=== PATIENT | female | born 1985 | race Caucasian/White ===

== ENCOUNTER 2023-05-17 06:58 | Outpatient (CLI) | payer BC, SELFPAY ==
[2023-05-17 07:37] LABS: Glucose Fasting Gestational 87 mg/dL (>/=95)
[2023-05-17 09:01] LABS: Glucose 1 Hour Gest 163 mg/dL (>/=180)
[2023-05-17 11:26] LABS: Glucose 3 Hour Gest 84 mg/dL (>/=140)
[2023-05-17 11:28] LABS: Glucose 2 Hour Gest 142 mg/dL (>/= 155)
== END 2023-05-17 06:59 | disposition home or self-care (01) ==
PROVIDERS: PCP Nurse Practitioner Family; Visit Provider Obstetrics & Gynecology
DX: R73.09 Other abnormal glucose (principal)
CPT/HCPCS: 36415; 82951; 82952

== ENCOUNTER 2023-06-21 11:08 | Emergency (ER) | payer BC, SELFPAY ==
--- NOTE | 2023-06-21 11:19 | ED.GENADULT ---
HPI - General Adult General Chief complaint: Upper Respiratory Infection Stated complaint: COLD SYMPTOMS/35 WEEKS Time Seen by Provider: 06/21/23 11:22 Source: patient, RN notes reviewed and old records reviewed Mode of arrival: ambulatory Limitations: no limitations History of Present Illness HPI narrative: 37-year-old female presents to the [facility] with cold-like symptoms since Saturday. Patient reports head congestion and cough. Denies fevers. Recently on a Z-Billy that was prescribed by Ob. States that for the last couple days has been taking DayQuil and NyQuil. Patient 35 weeks Onset (ago): day(s) (5) Treatments prior to arrival: other (dayquil) Related Data Home Medications Medication Instructions Recorded Confirmed aspirin 81 mg tablet,delayed 81 mg PO DAILY 06/21/23 06/21/23 release multivit with minerals-iron 18 1 tablet PO DAILY 06/21/23 06/21/23 mg-folic ac 400 mcg-vit K 25 mcg tablet (One Daily Women's) Allergies Allergy/AdvReac Type Severity Reaction Status Date / Time amoxicillin Allergy Severe rash Verified 06/21/23 11:23 Review of Systems Review of Systems: All systems reviewed & are unremarkable except as noted in HPI and below Constitutional: Constitutional: Reports no additional constitutional complaints Eyes: Eyes: Reports no additional eye complaints ENT: Reports as per HPI and Reports nasal congestion Cardiovascular: Cardiovascular: Reports no additional cardiovascular complaints, Denies chest pain and Denies dyspnea Respiratory: Respiratory: Reports as per HPI, Reports chest congestion, Reports cough and Denies dyspnea Gastrointestinal: Gastrointestinal: Reports no additional gastrointestinal complaints, Denies abdominal pain, Denies nausea and Denies vomiting Musculoskeletal: Musculoskeletal: Reports no additional musculoskeletal complaints Integumentary/Breasts: Skin/Breast: Reports system reviewed and no additional complaints, except as docu Neurologic: Reports system reviewed and no additional complaints, except as documented Psychiatric: Psychiatric: Reports no additional psychiatric complaints Allergic/Immunologic: Allergic/Immunologic: Reports no additional allergic/immunologic complaints PMFSH Past Medical History Medical History Blood glucose abnormal Family History Family History Mother Patient's mother is in good health Father Patient's father is in good health Sibling Patient's sister is in good health Patient's brother is in good health Social History Social History Smoking status: Never smoker Alcohol intake: never Substance use: never Substance use type: does not use Lack of Transportation: No Lack of Food: Never True Current Housing: I Have Housing Concerned About Future Housing: No Difficulty Paying Gas/Electric Bills: No Difficulty Paying for Meds: No Education: Master's Degree or Higher Difficulty w/ Childcare or Family Care: No Living arrangements: with family Occupation/Education: occupation 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 There is no relevant family history pertinent to the patient complaint. Exam Const: General: cooperative, healthy appearing, comfortable, no acute distress, well developed, alert and well nourished Nutritional Appearance: well nourished Orientation/consciousness: patient oriented x3 Limitations: no limitations HENMT: Head: normal to inspection Ears: hearing grossly normal bilaterally and external ears normal Face
[2023-06-21 11:22] VITALS: BP 158/107; PULSE 70; RESP 16; TEMP 36.8; O2SAT 100
[2023-06-21 11:26] VITALS: BP 158/107; PULSE 70; RESP 16; TEMP 36.8; O2SAT 100
[2023-06-21 11:34] VITALS: BP 179/131
== END 2023-06-21 11:36 | disposition short-term general hospital (02) ==
PROVIDERS: Emergency Provider Nurse Practitioner; PCP Obstetrics & Gynecology
DX: O99.891 Other specified diseases and conditions complicating pregnancy (principal); Z3A.35 35 weeks gestation of pregnancy; R03.0 Elevated blood-pressure reading, without diagnosis of hypertension; O99.513 Diseases of the respiratory system complicating pregnancy, third trimester; J06.9 Acute upper respiratory infection, unspecified; Z79.82 Long term (current) use of aspirin
CPT/HCPCS: 99212; G0463

== ENCOUNTER 2023-06-21 12:52 | Observation (INO) | payer BC, SELFPAY ==
[2023-06-21] VITALS (73 sets, daily range): BP systolic 144–190; BP diastolic 94–122; PULSE 72–107; RESP 18–20; TEMP 36.4–36.9; O2SAT 98–100; BMI 28.0
--- NOTE | ~2023-06-21 | US_ITS ---
EXAMINATION: US OB follow up DATE: 06/21/2023 17:08 INDICATION: Estimated weight and amniotic fluid assessment during third trimester TECHNIQUE: Real-time ultrasound of the pelvis was performed. The interpreting radiologist was not pre sent for the study. COMPARISON: 06/05/2023 FINDINGS: There is a single living fetus in vertex presentation. The placenta is anterior. card iac activity and movement are noted. heart rate is 129 beats per minute (bpm). The amniot ic fluid index is 6.5 cm which is low (normal range: 7.7 cm to 24.9 cm). The following biometric data were obtained: Biparietal diameter (BPD): 9.0 cm; head circumference (HC): 32.1 cm; abdominal circumference (AC): 31 .4 cm; femur length (FL): 7.0 cm. These measurements are concordant. Estimated weight is 2736 g +/- 410 g, which correlates with the 48th percentile when 07/21/2023 is used as estimated date of delivery. As single measurements, these parameters are each equal to the following estimated gestational ages w ith ranges of +/- 2 standard deviations: BPD: 36 weeks 3 days +/- 3 weeks 1 days. HC: 36 weeks 1 days +/- 2 weeks 5 days. AC: 35 weeks 2 days +/- 3 weeks 0 days. FL: 35 weeks 6 days +/- 3 weeks 0 days. estimated gestational age based solely on measurements from this exam is 36 weeks 0 days +/- 2 weeks 4 days. IMPRESSION: 1. Single living fetus in vertex presentation. 2. Oligohydramnios. 3. Estimated weight is 2736 g +/- 410 g, which correlates with the 48th percentile when 07/21/19 24 is used as estimated date of delivery. Reviewed, dictated and finalized at location [facility] IMPRESSION: 1. Single living fetus in vertex presentation. 2. Oligohydramnios. 3. Estimated weight is 2736 g +/- 410 g, which correlates with the 48th p ercentile when 07/21/2023 is used as estimated date of delivery.
--- NOTE | 2023-06-21 11:53 | PC.NURSE ---
pt was sent from express care due to elevated BP. Pt states she has cold and cough since saturday and went to express care for medication. Pt denies headaches, chest pain, or visual disturbance. pt states she has short of breath from coughing..
[2023-06-21 12:33] LABS: Basophils Percent Auto 0.3 % (0.2-1.2); Eosinophils Absolute Auto 0.1 K/mm3 (0-0.3); Eosinophils Percent Auto 0.7 % (0-4.4); Hematocrit 32.8 % (37.0-47.0); Hemoglobin 11.3 g/dL (12.0-15.0); Immature Granulocyte Absolute 0.06 K/mm3 (0.00-0.031); Immature Granulocyte Percent A 0.7 % (0-0.5); Lymphocytes Absolute Auto 1.65 K/mm3 (0.9-3.2); Mean Corpuscular HGB Conc 34.5 g/dl (32-36); Mean Corpuscular Hemoglobin 31.4 pg (26-34); Mean Corpuscular Volume 91.1 fl (80-100); Mean Platelet Volume 9.7 fl (7.4-10.4); Monocytes Absolute Auto 0.6 K/mm3 (0.1-0.6); Monocytes Percent Auto 6.4 % (2.6-8.5); Neutrophils Absolute Auto 6.8 K/mm3 (1.3-6.7); Neutrophils Percent Auto 73.9 % (45.5-73.1); Platelet Count Result 229 k/mm3 (150-375); Red Cell Distribution Width 12.4 % (11.5-14.5); White Blood Count 9.2 K/mm3 (4.5-10.0)
[2023-06-21 12:44] LABS: Alanine Aminotransferase 12 U/L (6-35); Albumin Level 3.5 g/dL (3.5-5.1); Alkaline Phosphatase 168 U/L (38-126); Anion Gap 9 mmol/L (8-16); Aspartate Amino Transferase 22 U/L (14-36); Bilirubin,Total 0.7 mg/dL (0.2-1.3); Blood Urea Nitrogen 4 mg/dL (7-17); Calcium 8.7 mg/dL (8.4-10.2); Carbon Dioxide 21 mmol/L (22-30); Chloride 106 mmol/L (98-107); Estimated Glomerular Filt Rate > 60; Glucose 76 mg/dL (65-110); Potassium 3.6 mmol/L (3.4-5.0); Sodium 136 mmol/L (137-145); Uric Acid 2.8 mg/dL (2.5-7.5)
--- NOTE | 2023-06-21 12:46 | PC.NURSE ---
called Dr. Medina reported pt admission with elevated BP. Sever hypertension protocol with labetalol ordered
[2023-06-21 12:47] LABS: Creatinine Urine 36.6 mg/dL; Total Protein Urine Random 32 mg/dL; Ur Ttl Prot Creatinine Ratio 0.87 mg/mg (0-0.20)
[2023-06-21 12:55] LABS: Appearance Urine Cloudy (Clear); Bacteria Urine 4+ /hpf; Bilirubin Urine Negative (Negative); Color Urine Yellow (Yellow); Glucose Urine UA Negative (Negative); Ketones Urine Negative (Negative); Leukocyte Esterase Ur 3+ LEU/UL (NEGATIVE); Need Manual Microscopic Reviewed; Nitrate Urine Negative (Negative); Non Pathogenic Casts 0-2; Protein Urine Trace mg/dL (Negative); RBC Urine 0-2 /hpf (0-2); Specific Grav Ur 1.007 (1.001-1.035); Squamous Epithelial Cell Urine Many /hpf (Few); Urobilinogen Urine 0.2 mg/dL (<2.0)
[2023-06-21 12:57] LABS: Add Urine Microscopic? YES
[2023-06-21 13:09] LABS: SARS-CoV-2 RNA PCR Negative (Negative)
[2023-06-21] MEDS: LABETALOL HCL INJ 100 MG/20 ML VIAL 20 MG IV PUSH (13:09)
[2023-06-21] MEDS: LABETALOL HCL INJ 100 MG/20 ML VIAL 40 MG IV PUSH (13:29)
[2023-06-21 13:42] LABS: Influenza A QL RT-PCR Negative (Negative); Influenza B QL RT-PCR Negative (Negative)
[2023-06-21 13:43] LABS: RSV RNA, RT-PCR Negative (Negative)
--- NOTE | 2023-06-21 13:50 | PC.NURSE ---
Dr. Medina at department. [facility] lab result reported. Notified that pt received 2 doses of labetalol. order received for Ancef labetalol PO, Robitussin with codein for cough, [place], ancef. start 24 hour urine, observe overnight
[2023-06-21] MEDS: LABETALOL HCL 100 MG TABLET 400 MG PO ×2 (14:11→21:44)
[2023-06-21] MEDS: guaiFENesin/DEXTROMETHORPHAN 10 ML UDC 5 ML PO (14:42)
[2023-06-21] MEDS: LABETALOL HCL INJ 100 MG/20 ML VIAL 80 MG IV PUSH (14:43)
[2023-06-21] MEDS: BETAMETHASONE SOD PHOS/ACETATE 30 MG/5 ML VIAL 12 MG IM (14:55)
--- NOTE | 2023-06-21 15:06 | PM.IMHP ---
H&P: HPI History of Present Illness Date/Time: 06/21/23 15:06 Chief Complaint: Elevated blood pressure Narrative: Patient is a 37-year-old G1 at 35 weeks who presented to the urgent care due to upper respiratory symptoms and cough. Denies fever. At initial evaluation at urgent care her blood pressure was elevated 170s to 180s. She was not treated and was sent to Labor and delivery. She denies any headache scotomata or right upper quadrant pain. Denies any history of chronic hypertension or elevated blood pressures during the . Her records were reviewed on the EHR. Blood pressures remain elevated on Labor and delivery the severe range. [facility] labs obtained. Labs significant for protein creatinine ratio elevated but her urine analysis was not a cleaning collection. She was informed that a UTI which is a possibility urine culture will be sent could cause the increased protein creatinine ratio. Will give Ancef. Will start 24 hour urine. Will start antihypertensive once her blood pressures are stable. PNC sign for AMA, GBS bacteruria. PMFSH Past Medical History Medical History Blood glucose abnormal Family History Family History Mother Patient's mother is in good health Father Patient's father is in good health Sibling Patient's sister is in good health Patient's brother is in good health Social History Social History Smoking status: Never smoker Alcohol intake: never Substance use: never Substance use type: does not use Lack of Transportation: No Lack of Food: Never True Current Housing: I Have Housing Concerned About Future Housing: No Difficulty Paying Gas/Electric Bills: No Difficulty Paying for Meds: No Education: Master's Degree or Higher Difficulty w/ Childcare or Family Care: No Living arrangements: with family Occupation/Education: occupation 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[employer] Gender identity (if verbalized by the patient): Female Sexual Orientation (if Verbalized by the Patient): Straight or Heterosexual Meds Home Medications and Allergies Home Medications Medication Instructions Recorded Confirmed Type aspirin 81 mg tablet,delayed 81 mg PO DAILY 06/21/23 06/21/23 History release multivit with minerals-iron 18 1 tablet PO DAILY 06/21/23 06/21/23 History mg-folic ac 400 mcg-vit K 25 mcg tablet (One Daily Women's) Allergies Allergy/AdvReac Type Severity Reaction Status Date / Time amoxicillin Allergy Severe rash Verified 06/21/23 11:23 Vital Signs Vital Signs - 24 hr 06/21/23 12:17 06/21/23 12:19 06/21/23 12:24 Pulse Rate 90 Blood Pressure 183/120 H Pulse Oximetry 100 99 06/21/23 12:29 06/21/23 12:30 06/21/23 12:34 Pulse Rate 94 Blood Pressure 190/122 H Pulse Oximetry 100 100 06/21/23 12:39 06/21/23 12:42 06/21/23 12:44 Pulse Rate 88 Blood Pressure 177/116 H Pulse Oximetry 100 99 06/21/23 12:46 06/21/23 12:49 06/21/23 12:54 Pulse Rate 87 Blood Pressure 185/114 H Pulse Oximetry 100 100 06/21/23 12:59 06/21/23 13:09 06/21/23 13:11 Pulse Rate 75 76 Blood Pressure 183/99 H 158/101 H Pulse Oximetry 100 06/21/23 13:16 06/21/23 13:20 06/21/23 13:26 Pulse Rate 89 86 82 Blood Pressure 152/100 H 159/110 H 175/111 H Pulse Oximetry 06/21/23 13:31 06/21/23 13:41 06/21/23 13:09 Pulse Rate 76 77 76 Blood Pressure 161/100 H 155/105 H Pulse Oximetry 06/21/23 13:29 06/21/23 13:51 06/21/23 14:01 Pulse Rate 72 77 83 Blood Pressure 150/95 H 176/106 H Pulse Oximetry 06/21/23 14:10 06/21/23 14:41 06/21/23 14:46 Pulse Rate 84 86 83 Blood Pressure 168/108 H 163/96 H Pulse Oximetry 06/21/23 14:59 Pulse Rate 82 Blood Pressure 153/100 H Pulse Oximetry 98
[2023-06-21] MEDS: SODIUM CHLORIDE 0.9% IV 100 ML 30 ML (15:29)
[2023-06-21] MEDS: ceFAZolin 2 GM/D5W 50 ML 2 GM/50 ML BAG IVPB (15:29)
[2023-06-21] MEDS: hydrALAZINE HCL 20 MG/ML VIAL 10 MG IV PUSH (17:18)
--- NOTE | 2023-06-21 19:00 | PM.OBPNVD ---
OB - PN: Subj Subjective Date/time seen: 06/21/23 19:00 Interval history: Blood pressures continue to be in severe range. JAMES Hayes at [facility] consulted via telephone. She agreed with recommendation for delivery and to start Mag. I discussed patients hesitance when I mentioned earlier that this would be the recommendation if blood pressures remain elevated. I ordered Mg while and informed I was coming in to talk to patient. She refused Mg until she talked to me. I discussed the recommendation by myself and MFM for her to be delivered and I again discussed the risk of not starting induction to include abruption, demise, stroke, maternal and or . Discussed risk of prematurity and risk of transport. She voiced understanding. She did agree to Mag and will let me know if and where she agrees to induction. OB - PN: Obj Data Labs 06/21/23 12:08 06/21/23 12:08 Labs: Laboratory Results - last 24 hr 06/21/23 06/21/23 12:08 12:09 WBC 9.2 RBC 3.60 L Hgb 11.3 L Hct 32.8 L MCV 91.1 MCH 31.4 MCHC 34.5 RDW 12.4 Plt Count 229 MPV 9.7 Immature Gran % (Auto) 0.7 H Neut % (Auto) 73.9 H Lymph % (Auto) 18.0 L Burt % (Auto) 6.4 Eos % (Auto) 0.7 Baso % (Auto) 0.3 Lymph # (Auto) 1.65 Burt # (Auto) 0.6 Eos # (Auto) 0.1 Baso # (Auto) 0.0 Abs Immat Gran (auto) 0.06 H Absolute Neuts (auto) 6.8 H Absolute Nucleated RBC 0.0 Nucleated RBC % 0.0 Sodium 136 L Potassium 3.6 Chloride 106 Carbon Dioxide 21 L Anion Gap 9 BUN 4 L Creatinine 0.60 L Estim Creat Clear Calc Not Reportable Estimated GFR > 60 Glucose 76 Uric Acid 2.8 Calcium 8.7 Total Bilirubin 0.7 AST 22 ALT 12 Alkaline Phosphatase 168 H Total Protein 7.0 Albumin 3.5 Urine Color Yellow Urine Appearance Cloudy H Urine pH 7.0 Ur Specific Ferris 1.007 Urine Protein Trace Urine Glucose (UA) Negative Urine Ketones Negative Ur Blood (Man) Non-hemolyzed trace Urine Nitrate Negative Urine Bilirubin Negative Urine Urobilinogen 0.2 Ur Leukocyte Esterase 3+ H Add Ur Microanalysis Reviewed Urine RBC 0-2 Urine WBC 11-20 H Ur Squamous Epith Cells Many H Urine Bacteria 4+ H Urine Casts 0-2 U Random Total Protein 32 Urine Creatinine 36.6 Protein/Creat Ratio 2 0.87 H Influenza A (RT-PCR) Negative Influenza B (RT-PCR) Negative RSV (RT-PCR) Negative SARS-CoV-2 RNA (RT-PCR) Negative Imaging Radiologist's impression: Impressions Obstetrics Ultrasound 06/21/23 17:13 IMPRESSION: 1. Single living fetus in vertex presentation. 2. Oligohydramnios. 3. Estimated weight is 2736 g +/- 410 g, which correlates with the 48th percentile when 07/21/2023 is used as estimated date of delivery. OB - PN A/P Time Spent With Patient Time: Total time spent is greater than 50% in coordination of care (as documented) at patient's floor/unit and/or counseling patient:
[2023-06-21] MEDS: LACTATED RINGERS 1,000 ML 75 ML IV CONT (19:08)
[2023-06-21] MEDS: MAGNESIUM SULF 4 GM/WATER100ML 4 GM/100 ML BAG IVPB (19:10)
[2023-06-21] MEDS: MAGNESIUM SULF 20GM/WATER500ML 500 ML 50 MG IV CONT (19:34)
[2023-06-21] MEDS: hydrOXYzine HCL 25 MG TABLET PO (21:45)
[2023-06-21] MEDS: guaiFENesin/DEXTROMETHORPHAN 10 ML UDC PO (21:46)
== END 2023-06-21 22:44 ==
LOC: ANHLAB 23:38 → ANHOBPP 23:38
PROVIDERS: Admitting Provider Obstetrics & Gynecology; PCP Obstetrics & Gynecology; Visit Provider Obstetrics & Gynecology
DX: O13.3 Gestational [pregnancy-induced] hypertension without significant proteinuria, third trimester (principal); O23.43 Unspecified infection of urinary tract in pregnancy, third trimester; N39.0 Urinary tract infection, site not specified; O41.03X0 Oligohydramnios, third trimester, not applicable or unspecified; Z3A.35 35 weeks gestation of pregnancy; Z79.82 Long term (current) use of aspirin; Z79.899 Other long term (current) drug therapy; Z20.822 Contact with and (suspected) exposure to COVID-19
CPT/HCPCS: 36415; 76816; 80053; 81001; 82570; 84156; 84550; 85025; 87086; 87088; 87502; 87634; 87635; 96365; 96372; 96375; 96376; 99199; 99212; A9270; G0378; G0379; G0463; J0360; J0690; J0702; J3475; J7120